=== PATIENT | female | born 1995 | race Caucasian/White ===

== ENCOUNTER 2017-03-20 10:15 | Inpatient (IN) | payer OTHER ==
[~2017-03-20] VITALS: Ht 152.4 cm; Wt 53.1 kg
== END 2017-04-05 15:13 | DRG 767 ==
LOC: LDR 04-03 05:32 → OB/GYN 04-03 05:32 → SURH 04-13 10:15
PROVIDERS: Obstetrics & Gynecology
PROC: 10D17ZZ Extraction of Products of Conception, Retained, Via Natural or Artificial Opening (ICD-10-PCS; 2017-04-03)
PROC: 0UQGXZZ Repair Vagina, External Approach (ICD-10-PCS; 2017-04-03)
PROC: 4A1HXCZ Monitoring of Products of Conception, Cardiac Rate, External Approach (ICD-10-PCS; 2017-04-03)
PROC: 30233N1 Transfusion of Nonautologous Red Blood Cells into Peripheral Vein, Percutaneous Approach (ICD-10-PCS; 2017-04-03)
PROC: 10E0XZZ Delivery of Products of Conception, External Approach (ICD-10-PCS; principal; 2017-04-03 18:00)
DX: O71.4 Obstetric high vaginal laceration alone (principal); Z37.0 Single live birth; O72.2 Delayed and secondary postpartum hemorrhage; D62 Acute posthemorrhagic anemia; O90.81 Anemia of the puerperium; Z3A.39 39 weeks gestation of pregnancy

== ENCOUNTER 2020-12-03 05:48 | Day surgery (SDC) | payer OTHER | END 2020-12-03 14:30 | disposition home or self-care (01) | LOC: CIR.AMB 05:48 | PROVIDERS: ATTEND Obstetrics & Gynecology | DX: N70.91 Salpingitis, unspecified (principal); R10.2 Pelvic and perineal pain; Z20.822 Contact with and (suspected) exposure to COVID-19 ==